=== PATIENT | male | born 1995 | race Caucasian/White ===

== ENCOUNTER 2017-02-15 17:53 | Emergency (ER) | payer MEDICAID ==
[~2017-02-15] VITALS: Ht 190.5 cm; Wt 84.8 kg
[2017-02-15 20:34] VITALS: BP 154/75
== END 2017-02-15 21:33 | disposition home or self-care (01) ==
LOC: ER 17:57
DX: S00.83XA Contusion of other part of head, initial encounter (principal); J02.9 Acute pharyngitis, unspecified; W22.8XXA Striking against or struck by other objects, initial encounter; Y93.89 Activity, other specified; Y99.0 Civilian activity done for income or pay; Y92.69 Other specified industrial and construction area as the place of occurrence of the external cause
CPT/HCPCS: 70450